=== PATIENT | male | born 1955 | race Caucasian/White ===

== ENCOUNTER 2019-10-03 11:34 | Day surgery (SDC) | payer MEDICARE, OTHER ==
[~2019-10-03] VITALS: Ht 188 cm; Wt 146.1 kg
[2019-10-03] VITALS (10 sets, daily range): BP systolic 104–162; BP diastolic 51–83
[2019-10-03] MEDS ORDERED: normal saline 1,000 ML IV SCH (12:00)
[2019-10-03] MEDS ORDERED: diphenhydrAMINE 25mg capsule PO PRN (12:00)
[2019-10-03 12:51] LABS: BASOPHILS % (AUTO) 0.3 % (0-1); EOSINOPHILS # (AUTO) 0.3 X10'3 (0-0.9); EOSINOPHILS % (AUTO) 3.3 % (0-6); HEMATOCRIT 44.5 % (42.0-52.0); HEMOGLOBIN 14.8 g/dl (14.0-17.9); LYMPHOCYTES # (AUTO) 2.1 X10'3 (1.1-4.8); LYMPHOCYTES % (AUTO) 28.5 % (21-51); MEAN CORPUSCULAR HEMOGLOBIN 27.2 PG (27.0-31.0); MEAN CORPUSCULAR HGB CONC 33.3 g/dL (33.0-36.5); MEAN CORPUSCULAR VOLUME 81.7 FL (78-98); MEAN PLATELET VOLUME 8.6 FL (7.4-10.4); MONOCYTES # (AUTO) 0.7 X10'3 (0-0.9); NEUTROPHILS # (AUTO) 4.4 X10'3 (1.8-7.7); NEUTROPHILS % (AUTO) 58.9 % (42-75); PLATELET COUNT 236 X10'3 (140-440); RED BLOOD COUNT 5.45 X10'6 (4.70-6.10); RED CELL DISTRIBUTION WIDTH 15.2 % (11.5-14.5); WHITE BLOOD COUNT 7.5 X10'3 (4.5-11.0)
[2019-10-03] MEDS ORDERED: AMLO10TA PO (13:09)
[2019-10-03] MEDS ORDERED: HYDR-4353 PO (13:09)
[2019-10-03] MEDS ORDERED: METF1000 PO (13:09)
[2019-10-03] MEDS ORDERED: CHOL200077 PO (13:09)
[2019-10-03] MEDS ORDERED: HYDR100T27 PO (13:09)
[2019-10-03] MEDS ORDERED: FLO0.4C PO (13:09)
[2019-10-03] MEDS ORDERED: DORZ10DR2 LEFTEYE (13:09)
[2019-10-03] MEDS ORDERED: ATOR20TA PO (13:09)
[2019-10-03] MEDS ORDERED: VALS320T17 PO (13:09)
[2019-10-03] MEDS ORDERED: DORZ10DR2 RIGHTEYE (13:09)
[2019-10-03] MEDS ORDERED: EPLE25TA4 PO (13:09)
[2019-10-03] MEDS ORDERED: fentaNYL/PF 50MCG/1 ML 2ML syringe ONE (14:18)
[2019-10-03] MEDS ORDERED: LIDOcaine 1% (10mg/ml)w/preservative injection 20ml MDV ONE (14:18)
[2019-10-03] MEDS ORDERED: midazolam 2 mg/2 ml injection ONE ×2 (14:18→15:16)
[2019-10-03] MEDS ORDERED: iohexol 350MG/ML 100ml bottle IV ONE (14:18)
[2019-10-03] MEDS ORDERED: iohexol 350 MG/ML 50ML vial IV ONE (14:18)
[2019-10-03 15:10] LABS: ALBUMIN 4.4 G/DL (3.4-5.0); ANION GAP 14 (8-16); BLOOD UREA NITROGEN 22 MG/DL (7-18); BUN/CREATININE RATIO 26.5 (5.4-32.0); CALCIUM 9.9 MG/DL (8.5-10.1); CHLORIDE 106 MMOL/L (99-107); CREATININE 0.83 MG/DL (0.60-1.10); GLUCOSE 112 MG/DL (70-104); MAGNESIUM 1.8 MG/DL (1.5-2.4); SODIUM 142 MMOL/L (135-145); TOTAL CARBON DIOXIDE 22.4 MMOL/L (24-32); eGFR > 90 ML/MIN
--- NOTE | 2019-10-03 15:27 | NUR ---
DR. HERNADEZ WAS CONCERNED ABOUT ASHLEY NOT VENTILATING HIMSELF UNDER SEDATION FOR YOANNA. 20 MIN PRIVACY MANAGER PROCEDURE AND ASKED FOR BIPAP DURING PROCEDURE DID CAUTION DR. HERNADEZ AND RN'S NINOSKA AND XAVIER ABOUT WITH MASK ON IF PATIENT IS UNABLE TO PROTECT AIRWAY UNDER SEDATION TO KEEP CONTINUOUS CHECKS ON PATIENT'S MASK FOR ANY POSSIBLE SIGNS OF ASPIRATIONS. Addendum: 10/03/19 at 1534 by Shane Garcia RT Amended: Links added.
--- NOTE | 2019-10-03 15:41 | NUR ---
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
--- NOTE | 2019-10-03 15:52 | NUR ---
CHECKED ON ASHLEY BAILEY IN SHORT STAY RM 1342, TALKING, ORIENTED, RR 15, HR 53, SPO95% ON R/A. STEPHY WRAY HIS NURSE SAID BREATH SOUNDS WERE CLEAR THROUGH OUT. Addendum: 10/03/19 at 1553 by Shane Garcia RT Amended: Links added.
[2019-10-03] MEDS ORDERED: HYDROcodone/acetaminophen 10/325mg tab PO PRN (16:10)
[2019-10-03] MEDS ORDERED: OXAZEpam 15mg capsule PO PRN (16:10)
[2019-10-03] MEDS ORDERED: HYDROcodone/acetaminophen 5mg/325mg tablet PO PRN (16:10)
[2019-10-03] MEDS ORDERED: ondansetron/PF 4mg/2ml inj IV PRN (16:10)
[2019-10-03] MEDS ORDERED: proCHLORperazine 10 MG/2 ml inj IV PRN (16:10)
== END 2019-10-03 19:11 | disposition home or self-care (01) ==
LOC: SSTAY O 11:34
PROVIDERS: ATTEND Internal Medicine Cardiovascular Disease
DX: R94.39 Abnormal result of other cardiovascular function study (principal); E78.5 Hyperlipidemia, unspecified; I10 Essential (primary) hypertension; E11.9 Type 2 diabetes mellitus without complications; G47.30 Sleep apnea, unspecified; E66.01 Morbid (severe) obesity due to excess calories; Z68.41 Body mass index [BMI] 40.0-44.9, adult; Z98.890 Other specified postprocedural states; Z79.84 Long term (current) use of oral hypoglycemic drugs; Z79.899 Other long term (current) drug therapy
CPT/HCPCS: 36415; 80048; 83735; 85025; 85610; 93005; 93458; 94660; 99152; C1769; C1894; J1644; J2001; J2250; J3010; J7030; Q0163; Q9967; A4620; A6258; C1760